=== PATIENT | female | born 1990 | race Caucasian/White ===

== ENCOUNTER 2016-07-27 11:18 | Outpatient (CLI) | payer OTHER ==
[~2016-07-27] VITALS: Ht 154.9 cm; Wt 58.5 kg
[~2016-07-27 11:18] MED LIST: TRINESSA LO TA1 EACH PO
[2016-07-27 12:03] LABS: HEMATOCRIT 37.1 % (37.0-47.0); MEAN CELL VOLUME 86 fl (80.0-100.0); MEAN CORPUSCULAR HEMOGLOBIN 27 pg (27.0-31.0); MEAN CORPUSCULAR HGB CONC 32 g/dl (33.0-37.0); MEAN PLATELET VOLUME 9.2 fl (7.4-10.4); PLATELET COUNT 362 K/mm3 (130-400); RED BLOOD COUNT 4.34 M/mm3 (4.10-5.30); REDCELL DISTRIBUTION WIDTH-CV 15.6 % (11.5-14.5); WHITE BLOOD COUNT 10.9 K/mm3 (4.8-10.8)
[2016-07-27 12:04] LABS: HEMOGLOBIN 11.8 g/dl (12.5-16.0)
[2016-07-27 12:05] LABS: ADD PATHOLOGY DIFF REVIEW NO
[2016-07-27 12:17] LABS: CALCIUM 9.6 mg/dL (8.4-10.2); CREATININE, serum 0.84 mg/dL (0.52-1.25); POTASSIUM 3.5 mmol/L (3.4-5.0)
[2016-07-27 12:18] LABS: BAND 19 % (0-10); NEUTROPHILS 35 % (42.0-75.2); PLATELET ESTIMATE NORMAL (NORMAL); TOTAL CELLS COUNTED 100
[2016-07-27 13:05] VITALS: BP 107/55; PULSE 71; TEMP 98
[2016-07-27 13:35] VITALS: BP 105/56; PULSE 73; TEMP 98.3
[2016-07-27 14:05] VITALS: BP 101/56; PULSE 71; TEMP 98.2
[2016-07-27 14:35] VITALS: BP 115/56; PULSE 64; TEMP 98.2
[2016-07-27 15:05] VITALS: BP 106/66; PULSE 69; TEMP 97.6
== END 2016-07-27 16:33 | disposition home or self-care (01) ==
LOC: EUO 11:18
PROVIDERS: Internal Medicine Gastroenterology
DX: K50.90 Crohn's disease, unspecified, without complications (principal)
CPT/HCPCS: J1200

== ENCOUNTER → 2016-12-23 | Outpatient (CLI) | payer OTHER ==
[2016-12-23 13:50] LABS: PROMETHEUS COLLECTION NO RESULTS EXPECTED
== END ==
LOC: COL.LAB 13:15
PROVIDERS: Internal Medicine Gastroenterology
DX: K50.90 Crohn's disease, unspecified, without complications (principal)